=== PATIENT | male | born 1965 | race Caucasian/White ===

== ENCOUNTER → 2017-08-01 | Outpatient (CLI) | payer OTHER | END | disposition home or self-care (01) | LOC: MRI 01:05 | DX: Z01.812 Encounter for preprocedural laboratory examination (principal); M48.061 Spinal stenosis, lumbar region without neurogenic claudication; R20.0 Anesthesia of skin ==

== ENCOUNTER 2019-11-20 14:11 | Emergency (ER) | payer OTHER ==
[~2019-11-20] VITALS: Ht 182.8 cm; Wt 102.1 kg
[2019-11-20] MEDS ORDERED: SYNTHROID25 MCG PO (14:44)
== END 2019-11-20 16:57 | disposition home or self-care (01) ==
LOC: ED 14:11
DX: B34.9 Viral infection, unspecified (principal); R05 Cough; E03.9 Hypothyroidism, unspecified; M19.90 Unspecified osteoarthritis, unspecified site; F17.200 Nicotine dependence, unspecified, uncomplicated; Z20.828 Contact with and (suspected) exposure to other viral communicable diseases; Z79.899 Other long term (current) drug therapy

== ENCOUNTER → 2020-05-19 | Outpatient (CLI) | payer OTHER ==
[~2020-05-19] MED LIST: SYNTHROID25 MCG PO
== END | disposition home or self-care (01) ==
LOC: MRI 13:18
PROVIDERS: ATTEND Nurse Practitioner Family
DX: M54.16 Radiculopathy, lumbar region (principal); M54.12 Radiculopathy, cervical region